=== PATIENT | female | born 1955 | race Caucasian/White ===

== ENCOUNTER 2021-11-21 11:17 | Inpatient (IN) | payer OTHER ==
[2021-11-21] MEDS ORDERED: BISMUTH SUBSALICYLATE 524 MG/30 ML PO PRN (12:51)
[2021-11-21] MEDS ORDERED: MAG HYDROX/AL HYDROX/SIMETH 30 ML UNIT-DOSE CUP PO PRN (12:51)
[2021-11-21] MEDS ORDERED: MENTHOL/PHENOL 1 EACH UD MM PRN (12:51)
[2021-11-21] MEDS ORDERED: MAGNESIUM HYDROX 2400MG/30ML ORAL SUSPENSION 30 ML CUP PO PRN (12:51)
[2021-11-21] MEDS ORDERED: ONDANSETRON *ODT* 4 MG TABLET SL PRN (12:51)
[2021-11-21] MEDS ORDERED: IBUPROFEN 400 MG TABLET (FP) PO PRN (12:51)
[2021-11-21] MEDS ORDERED: ACETAMINOPHEN 325 MG TABLET (FP) PO PRN ×2 (12:51)
[2021-11-21] MEDS ORDERED: MAGNESIUM CITRATE 300 ML BOTTLE PO PRN (12:51)
[2021-11-21] MEDS: PRENATAL VITAMINS W/ FOLIC ACID TABLET (FP) PO SCH (14:43)
[2021-11-21] MEDS: hydrOXYzine PAMOATE 25 MG CAPSULE (FP) PO SCH ×3 (14:44→22:16)
[2021-11-21] MEDS: NICOTINE 14 MG/24 HOURS TOPICAL PATCH TD SCH (14:44)
[2021-11-21] MEDS: LORazepam 1 MG TABLET PO PRN (14:55)
[2021-11-21] MEDS: METHOCARBAMOL 500 MG TABLET PO PRN ×2 (14:56→22:16)
[2021-11-21 17:17] LABS: ALBUMIN 3.6 g/dl (3.4-5.0); BLOOD UREA NITROGEN 8.4 mg/dL (7-18)
[2021-11-21 17:20] LABS: CREATININE 0.8 mg/dL (0.55-1.3)
[2021-11-21 17:21] LABS: BILIRUBIN,TOTAL 0.4 mg/dL (0.2-1)
[2021-11-21 17:24] LABS: HEMATOCRIT 37.1 % (32.4-45.2); HEMOGLOBIN 11.5 GM/dL (10.7-15.3); MCHC 31.1 g/dl (32.0-36.0); MEAN CELL VOLUME 63.2 fl (80-96); MEAN PLT VOLUME 9.4 fl (7.5-11.1); PLATELET COUNT 253 10^3/uL (134-434); RBC 5.87 M/mm3 (3.60-5.2); WHITE BLOOD COUNT 10.5 K/mm3 (4.0-10.0)
[2021-11-21 17:27] LABS: MCH 19.6 pg (25.7-33.7)
[2021-11-21] MEDS: LORazepam 1 MG TABLET PO SCH ×2 (17:52→22:17)
[2021-11-21 18:51] VITALS: BMI 24.6
[2021-11-21] MEDS: MELATONIN 5 MG TABLETS PO SCH (22:16)
[2021-11-21] MEDS: THIAMINE HCL 100 MG TABLET (FP) PO SCH (22:17)
[2021-11-22] MEDS: hydrOXYzine PAMOATE 25 MG CAPSULE (FP) PO SCH ×5 (05:40→22:40)
[2021-11-22] MEDS: LORazepam 1 MG TABLET PO SCH ×4 (05:40→22:40)
[2021-11-22] MEDS ORDERED: methaDONE HCL 40 MG DISPERSABLE TABLET ONE (09:38)
[2021-11-22] MEDS ORDERED: methaDONE HCL 10 MG TABLET ONE (09:38)
[2021-11-22] MEDS ORDERED: DULoxetine HCL 30 MG CAPSULE.DR PO SCH (10:00)
[2021-11-22] MEDS ORDERED: methaDONE 40 MG, methaDONE 10 MG PO ONE (10:00)
[2021-11-22] MEDS ORDERED: methaDONE HCL 10 MG TABLET PO ONE (10:00)
[2021-11-22] MEDS: METHOCARBAMOL 500 MG TABLET PO PRN (10:09)
[2021-11-22] MEDS: PRENATAL VITAMINS W/ FOLIC ACID TABLET (FP) PO SCH (10:09)
[2021-11-22] MEDS ORDERED: DULoxetine HCL 60 MG CAPSULE.DR PO SCH (10:38)
[2021-11-22] MEDS: DULoxetine HCL 60 MG CAPSULE.DR PO SCH (11:52)
[2021-11-22] MEDS: NICOTINE 14 MG/24 HOURS TOPICAL PATCH TD SCH (11:52)
[2021-11-22] MEDS: THIAMINE HCL 100 MG TABLET (FP) PO SCH (22:39)
[2021-11-22] MEDS: MELATONIN 5 MG TABLETS PO SCH (22:42)
[2021-11-23] MEDS ORDERED: methaDONE HCL 10 MG TABLET PO SCH (06:00)
[2021-11-23] MEDS ORDERED: methaDONE HCL 40 MG DISPERSABLE TABLET ONE (06:44)
[2021-11-23] MEDS ORDERED: methaDONE HCL 10 MG TABLET ONE (06:44)
[2021-11-23] MEDS: hydrOXYzine PAMOATE 25 MG CAPSULE (FP) PO SCH ×5 (06:45→22:20)
[2021-11-23] MEDS: LORazepam 1 MG TABLET PO SCH ×4 (06:45→22:20)
[2021-11-23] MEDS: methaDONE 40 MG, methaDONE 10 MG PO SCH (06:45)
[2021-11-23] MEDS: PRENATAL VITAMINS W/ FOLIC ACID TABLET (FP) PO SCH (10:11)
[2021-11-23] MEDS: METHOCARBAMOL 500 MG TABLET PO PRN (10:11)
[2021-11-23] MEDS: DULoxetine HCL 60 MG CAPSULE.DR PO SCH (10:11)
[2021-11-23] MEDS: NICOTINE 14 MG/24 HOURS TOPICAL PATCH TD SCH (10:13)
[2021-11-23] MEDS ORDERED: ALBUTEROL SO4 HFA INHALER IH PRN (12:58)
[2021-11-23] MEDS: LORazepam 1 MG TABLET PO PRN (17:23)
[2021-11-23] MEDS: BUDESONIDE/FORMETEROL FUMARATE 80/4.5 mcg INHALER IH SCH (22:13)
[2021-11-23] MEDS: THIAMINE HCL 100 MG TABLET (FP) PO SCH (22:20)
[2021-11-23] MEDS: MELATONIN 5 MG TABLETS PO SCH (22:20)
[2021-11-23] MEDS: NICOTINE 10 MG CARTRIDGE (INHALER) IH PRN (23:02)
[2021-11-24] MEDS ORDERED: methaDONE HCL 10 MG TABLET ONE (03:58)
[2021-11-24] MEDS ORDERED: methaDONE HCL 40 MG DISPERSABLE TABLET ONE (03:58)
[2021-11-24] MEDS: hydrOXYzine PAMOATE 25 MG CAPSULE (FP) PO SCH ×5 (05:36→22:41)
[2021-11-24] MEDS: methaDONE 40 MG, methaDONE 10 MG PO SCH (05:36)
[2021-11-24] MEDS: LORazepam 0.5 MG TABLET PO SCH ×4 (05:37→22:41)
[2021-11-24] MEDS: NICOTINE 10 MG CARTRIDGE (INHALER) IH PRN ×4 (05:40→18:14)
[2021-11-24] MEDS: LORazepam 0.5 MG TABLET PO PRN ×2 (08:28→15:26)
[2021-11-24] MEDS: PRENATAL VITAMINS W/ FOLIC ACID TABLET (FP) PO SCH (10:40)
[2021-11-24] MEDS: DULoxetine HCL 60 MG CAPSULE.DR PO SCH (10:40)
[2021-11-24] MEDS: NICOTINE 14 MG/24 HOURS TOPICAL PATCH TD SCH (10:41)
[2021-11-24] MEDS: TIOTROPIUM BROMIDE 2.5 MCG (SPIRIVA) RESPIMAT INHALER IH SCH (10:46)
[2021-11-24] MEDS: BUDESONIDE/FORMETEROL FUMARATE 80/4.5 mcg INHALER IH SCH ×2 (10:47→22:41)
[2021-11-24 13:52] LABS: HEMATOCRIT 37.3 % (32.4-45.2); HEMOGLOBIN 11.7 GM/dL (10.7-15.3); MCHC 31.4 g/dl (32.0-36.0); MEAN PLT VOLUME 8.9 fl (7.5-11.1); PLATELET COUNT 174 10^3/uL (134-434); RBC 5.92 M/mm3 (3.60-5.2); RDW 19.8 % (11.6-15.6); WHITE BLOOD COUNT 7.5 K/mm3 (4.0-10.0)
[2021-11-24 13:58] LABS: MCH 19.8 pg (25.7-33.7)
[2021-11-24] MEDS ORDERED: LIDOCAINE 5% TOPICAL PATCH TP ONE (18:20)
[2021-11-24] MEDS: MELATONIN 5 MG TABLETS PO SCH (22:41)
[2021-11-24] MEDS: THIAMINE HCL 100 MG TABLET (FP) PO SCH (22:41)
[2021-11-25] MEDS ORDERED: methaDONE HCL 40 MG DISPERSABLE TABLET ONE (04:03)
[2021-11-25] MEDS ORDERED: methaDONE HCL 10 MG TABLET ONE (04:03)
[2021-11-25] MEDS ORDERED: LORazepam 0.5 MG TABLET PO ONE (05:00)
[2021-11-25] MEDS: methaDONE 40 MG, methaDONE 10 MG PO SCH (06:02)
[2021-11-25] MEDS: hydrOXYzine PAMOATE 25 MG CAPSULE (FP) PO SCH ×2 (06:02→10:06)
[2021-11-25] MEDS: NICOTINE 10 MG CARTRIDGE (INHALER) IH PRN ×2 (06:08→10:06)
[2021-11-25 07:30] VITALS: BP 109/71; PULSE 98; TEMP 98
[2021-11-25] MEDS ORDERED: LIDOCAINE PATCH REMOVAL MC SCH (10:00)
[2021-11-25] MEDS: TIOTROPIUM BROMIDE 2.5 MCG (SPIRIVA) RESPIMAT INHALER IH SCH (10:05)
[2021-11-25] MEDS: BUDESONIDE/FORMETEROL FUMARATE 80/4.5 mcg INHALER IH SCH (10:05)
[2021-11-25] MEDS: DULoxetine HCL 60 MG CAPSULE.DR PO SCH (10:06)
[2021-11-25] MEDS: PRENATAL VITAMINS W/ FOLIC ACID TABLET (FP) PO SCH (10:06)
[2021-11-25] MEDS: NICOTINE 14 MG/24 HOURS TOPICAL PATCH TD SCH (10:06)
== END 2021-11-25 10:31 | disposition home or self-care (01) | DRG 897 ==
LOC: YASAS 11:17 → Y6N 13:59
PROVIDERS: ADMIT Allergy & Immunology; ATTEND Allergy & Immunology
PROC: HZ2ZZZZ Detoxification Services for Substance Abuse Treatment (ICD-10-PCS; principal; 2021-11-21)
DX: F10.230 Alcohol dependence with withdrawal, uncomplicated (principal); F11.20 Opioid dependence, uncomplicated; F14.20 Cocaine dependence, uncomplicated; F17.213 Nicotine dependence, cigarettes, with withdrawal; F41.8 Other specified anxiety disorders; F32.A Depression, unspecified; R76.11 Nonspecific reaction to tuberculin skin test without active tuberculosis; Z96.651 Presence of right artificial knee joint
CPT/HCPCS: 36415; 80053; 82947; 82962; 83036; 85027; 86780; C9803; U0003; U0005

== ENCOUNTER 2021-12-05 12:21 | Inpatient (IN) | payer OTHER ==
[2021-12-05] MEDS ORDERED: MENTHOL/PHENOL 1 EACH UD MM PRN (12:38)
[2021-12-05] MEDS ORDERED: IBUPROFEN 400 MG TABLET (FP) PO PRN (12:38)
[2021-12-05] MEDS ORDERED: MAGNESIUM HYDROX 2400MG/30ML ORAL SUSPENSION 30 ML CUP PO PRN (12:38)
[2021-12-05] MEDS ORDERED: ACETAMINOPHEN 325 MG TABLET (FP) PO PRN ×2 (12:38)
[2021-12-05] MEDS ORDERED: ONDANSETRON *ODT* 4 MG TABLET SL PRN (12:38)
[2021-12-05] MEDS ORDERED: MAG HYDROX/AL HYDROX/SIMETH 30 ML UNIT-DOSE CUP PO PRN (12:38)
[2021-12-05] MEDS ORDERED: BISMUTH SUBSALICYLATE 262 MG/15 ML BTL PO PRN (12:38)
[2021-12-05] MEDS ORDERED: LORazepam 1 MG TABLET PO PRN (12:38)
[2021-12-05] MEDS ORDERED: MAGNESIUM CITRATE 300 ML BOTTLE PO PRN (12:38)
[2021-12-05] MEDS ORDERED: ALBUTEROL SO4 HFA INHALER IH PRN (12:42)
[2021-12-05 13:01] VITALS: BMI 25.7
[2021-12-05] MEDS: NICOTINE 21 MG/24 HOURS TOPICAL PATCH TD SCH (15:39)
[2021-12-05] MEDS: metFORMIN HCL 500 MG TABLET (FP) PO SCH (17:20)
[2021-12-05] MEDS: LORazepam 1 MG TABLET PO SCH ×2 (17:20→22:22)
[2021-12-05 17:46] LABS: ALBUMIN 3.4 g/dl (3.4-5.0); CALCIUM 8.8 mg/dL (8.5-10.1)
[2021-12-05 17:47] LABS: BLOOD UREA NITROGEN 8.8 mg/dL (7-18)
[2021-12-05 17:50] LABS: CREATININE 0.9 mg/dL (0.55-1.3); HEMOGLOBIN 11.1 GM/dL (10.7-15.3); MCH 20.7 pg (25.7-33.7); MCHC 31.7 g/dl (32.0-36.0); MEAN CELL VOLUME 65.1 fl (80-96); MEAN PLT VOLUME 8.5 fl (7.5-11.1); PLATELET COUNT 175 10^3/uL (134-434); RBC 5.37 M/mm3 (3.60-5.2); RDW 21.5 % (11.6-15.6); WHITE BLOOD COUNT 7.8 K/mm3 (4.0-10.0)
[2021-12-05 17:51] LABS: BILIRUBIN,TOTAL 0.5 mg/dL (0.2-1); TOT PROT 6.6 g/dl (6.4-8.2)
[2021-12-05] MEDS: NICOTINE 10 MG CARTRIDGE (INHALER) IH PRN ×2 (17:54→22:26)
[2021-12-05] MEDS: BUDESONIDE/FORMETEROL FUMARATE 80/4.5 mcg INHALER IH SCH (22:21)
[2021-12-05] MEDS: THIAMINE HCL 100 MG TABLET (FP) PO SCH (22:22)
[2021-12-05] MEDS: busPIRone HCL 5 MG TABLET PO SCH (22:22)
[2021-12-05] MEDS: METHOCARBAMOL 500 MG TABLET PO PRN (22:22)
[2021-12-05] MEDS: hydrOXYzine PAMOATE 25 MG CAPSULE (FP) PO PRN (22:23)
[2021-12-05] MEDS: MELATONIN 5 MG TABLETS PO SCH (22:25)
[2021-12-06] MEDS: busPIRone HCL 5 MG TABLET PO SCH ×3 (06:09→22:59)
[2021-12-06] MEDS: LORazepam 1 MG TABLET PO SCH ×4 (06:09→22:16)
[2021-12-06] MEDS: metFORMIN HCL 500 MG TABLET (FP) PO SCH ×2 (06:09→18:52)
[2021-12-06] MEDS ORDERED: methaDONE HCL 10 MG TABLET PO SCH (07:45)
[2021-12-06] MEDS ORDERED: methaDONE HCL 10 MG TABLET ONE ×2 (08:49→08:54)
[2021-12-06] MEDS ORDERED: methaDONE HCL 40 MG DISPERSABLE TABLET ONE ×2 (08:49→08:54)
[2021-12-06] MEDS: NICOTINE 21 MG/24 HOURS TOPICAL PATCH TD SCH (10:33)
[2021-12-06] MEDS: methaDONE 40 MG, methaDONE 10 MG PO SCH (10:34)
[2021-12-06] MEDS: DULoxetine HCL 30 MG CAPSULE.DR PO SCH (10:35)
[2021-12-06] MEDS: PRENATAL VITAMINS W/ FOLIC ACID TABLET (FP) PO SCH (10:35)
[2021-12-06] MEDS: BUDESONIDE/FORMETEROL FUMARATE 80/4.5 mcg INHALER IH SCH ×2 (10:39→22:17)
[2021-12-06] MEDS: TIOTROPIUM BROMIDE 2.5 MCG (SPIRIVA) RESPIMAT INHALER IH SCH (10:40)
[2021-12-06] MEDS: METHOCARBAMOL 500 MG TABLET PO PRN (22:16)
[2021-12-06] MEDS: MELATONIN 5 MG TABLETS PO SCH (22:17)
[2021-12-06] MEDS: THIAMINE HCL 100 MG TABLET (FP) PO SCH (22:17)
[2021-12-06] MEDS: hydrOXYzine PAMOATE 25 MG CAPSULE (FP) PO PRN (22:19)
[2021-12-06] MEDS: NICOTINE 10 MG CARTRIDGE (INHALER) IH PRN (22:20)
[2021-12-07] MEDS ORDERED: methaDONE HCL 10 MG TABLET ONE (04:32)
[2021-12-07] MEDS ORDERED: methaDONE HCL 40 MG DISPERSABLE TABLET ONE (04:33)
[2021-12-07] MEDS: LORazepam 1 MG TABLET PO SCH ×4 (06:11→22:47)
[2021-12-07] MEDS: busPIRone HCL 5 MG TABLET PO SCH ×3 (06:11→22:47)
[2021-12-07] MEDS: methaDONE 40 MG, methaDONE 10 MG PO SCH (06:11)
[2021-12-07] MEDS: metFORMIN HCL 500 MG TABLET (FP) PO SCH ×2 (07:06→17:39)
[2021-12-07] MEDS: PRENATAL VITAMINS W/ FOLIC ACID TABLET (FP) PO SCH (10:17)
[2021-12-07] MEDS: BUDESONIDE/FORMETEROL FUMARATE 80/4.5 mcg INHALER IH SCH ×2 (10:18→22:44)
[2021-12-07] MEDS: TIOTROPIUM BROMIDE 2.5 MCG (SPIRIVA) RESPIMAT INHALER IH SCH (10:18)
[2021-12-07] MEDS: NICOTINE 21 MG/24 HOURS TOPICAL PATCH TD SCH (10:18)
[2021-12-07] MEDS: NICOTINE 10 MG CARTRIDGE (INHALER) IH PRN ×2 (10:23→13:32)
[2021-12-07] MEDS: DULoxetine HCL 30 MG CAPSULE.DR PO SCH (11:36)
[2021-12-07] MEDS: MELATONIN 5 MG TABLETS PO SCH (22:45)
[2021-12-07] MEDS: THIAMINE HCL 100 MG TABLET (FP) PO SCH (22:47)
[2021-12-07] MEDS: hydrOXYzine PAMOATE 25 MG CAPSULE (FP) PO PRN (22:48)
[2021-12-07] MEDS: METHOCARBAMOL 500 MG TABLET PO PRN (22:48)
[2021-12-08] MEDS ORDERED: LORazepam 0.5 MG TABLET PO PRN
[2021-12-08] MEDS ORDERED: methaDONE HCL 40 MG DISPERSABLE TABLET ONE (04:10)
[2021-12-08] MEDS ORDERED: methaDONE HCL 10 MG TABLET ONE (04:10)
[2021-12-08] MEDS: LORazepam 0.5 MG TABLET PO SCH ×4 (06:13→22:33)
[2021-12-08] MEDS: metFORMIN HCL 500 MG TABLET (FP) PO SCH ×2 (06:13→17:21)
[2021-12-08] MEDS: methaDONE 40 MG, methaDONE 10 MG PO SCH (06:13)
[2021-12-08] MEDS: busPIRone HCL 5 MG TABLET PO SCH ×3 (06:13→22:32)
[2021-12-08] MEDS: NICOTINE 10 MG CARTRIDGE (INHALER) IH PRN ×5 (06:17→22:34)
[2021-12-08] MEDS: PRENATAL VITAMINS W/ FOLIC ACID TABLET (FP) PO SCH (10:25)
[2021-12-08] MEDS: DULoxetine HCL 30 MG CAPSULE.DR PO SCH (10:26)
[2021-12-08] MEDS: TIOTROPIUM BROMIDE 2.5 MCG (SPIRIVA) RESPIMAT INHALER IH SCH (10:26)
[2021-12-08] MEDS: BUDESONIDE/FORMETEROL FUMARATE 80/4.5 mcg INHALER IH SCH ×2 (10:27→22:32)
[2021-12-08] MEDS: NICOTINE 21 MG/24 HOURS TOPICAL PATCH TD SCH (10:30)
[2021-12-08] MEDS: MELATONIN 5 MG TABLETS PO SCH (22:31)
[2021-12-08] MEDS: THIAMINE HCL 100 MG TABLET (FP) PO SCH (22:32)
[2021-12-09] MEDS ORDERED: methaDONE HCL 10 MG TABLET ONE (04:05)
[2021-12-09] MEDS ORDERED: methaDONE HCL 40 MG DISPERSABLE TABLET ONE (04:05)
[2021-12-09] MEDS ORDERED: LORazepam 0.5 MG TABLET PO ONE (05:00)
[2021-12-09] MEDS: methaDONE 40 MG, methaDONE 10 MG PO SCH (05:20)
[2021-12-09] MEDS: busPIRone HCL 5 MG TABLET PO SCH (05:20)
[2021-12-09] MEDS: NICOTINE 10 MG CARTRIDGE (INHALER) IH PRN (05:23)
[2021-12-09] MEDS: metFORMIN HCL 500 MG TABLET (FP) PO SCH (06:49)
[2021-12-09 08:57] VITALS: BP 99/68; PULSE 76; TEMP 977.3
== END 2021-12-09 09:30 | disposition home or self-care (01) | DRG 897 ==
LOC: YASAS 12:21 → Y3N 14:40
PROVIDERS: ADMIT Allergy & Immunology; ATTEND Allergy & Immunology
PROC: HZ2ZZZZ Detoxification Services for Substance Abuse Treatment (ICD-10-PCS; principal; 2021-12-05)
DX: F10.230 Alcohol dependence with withdrawal, uncomplicated (principal); F11.20 Opioid dependence, uncomplicated; F14.20 Cocaine dependence, uncomplicated; F17.210 Nicotine dependence, cigarettes, uncomplicated; F19.24 Other psychoactive substance dependence with psychoactive substance-induced mood disorder; F32.A Depression, unspecified; F41.8 Other specified anxiety disorders; J44.9 Chronic obstructive pulmonary disease, unspecified; E11.9 Type 2 diabetes mellitus without complications; Z79.84 Long term (current) use of oral hypoglycemic drugs; G47.00 Insomnia, unspecified; Z96.651 Presence of right artificial knee joint; Z99.89 Dependence on other enabling machines and devices
CPT/HCPCS: 36415; 71046-TC-FY; 80053; 82962; 85027; 86780; C9803; Q0162; U0003; U0005

== ENCOUNTER 2022-01-05 09:26 | Inpatient (IN) | payer OTHER ==
[2022-01-05 09:52] VITALS: BMI 25.1
[2022-01-05] MEDS ORDERED: METHOCARBAMOL 500 MG TABLET PO PRN (10:51)
[2022-01-05] MEDS ORDERED: MAGNESIUM CITRATE 300 ML BOTTLE PO PRN (10:51)
[2022-01-05] MEDS ORDERED: IBUPROFEN 400 MG TABLET (FP) PO PRN (10:51)
[2022-01-05] MEDS ORDERED: MAG HYDROX/AL HYDROX/SIMETH 30 ML UNIT-DOSE CUP PO PRN (10:51)
[2022-01-05] MEDS ORDERED: ACETAMINOPHEN 325 MG TABLET (FP) PO PRN ×2 (10:51)
[2022-01-05] MEDS ORDERED: MAGNESIUM HYDROX 2400MG/30ML ORAL SUSPENSION 30 ML CUP PO PRN (10:51)
[2022-01-05] MEDS ORDERED: MENTHOL/PHENOL 1 EACH UD MM PRN (10:51)
[2022-01-05] MEDS ORDERED: LOPERAMIDE HCL 2 MG CAPSULE PO PRN (10:51)
[2022-01-05] MEDS ORDERED: ONDANSETRON *ODT* 4 MG TABLET SL PRN (10:51)
[2022-01-05] MEDS ORDERED: BISMUTH SUBSALICYLATE 524 MG/30 ML PO PRN (10:51)
[2022-01-05] MEDS ORDERED: methaDONE HCL 10 MG TABLET (FOR DETOX USE ONLY) PO ONE (10:56)
[2022-01-05] MEDS: LORazepam 1 MG TABLET PO PRN ×2 (11:00→18:17)
[2022-01-05] MEDS ORDERED: LORazepam 1 MG TABLET ONE (11:17)
[2022-01-05] MEDS ORDERED: methaDONE HCL 10 MG TABLET (FOR DETOX USE ONLY) ONE (11:18)
[2022-01-05] MEDS: LORazepam 2 MG TABLET PO SCH ×3 (11:22→23:06)
[2022-01-05] MEDS: NICOTINE 10 MG CARTRIDGE (INHALER) IH PRN ×2 (13:21→18:20)
[2022-01-05] MEDS: hydrOXYzine PAMOATE 25 MG CAPSULE (FP) PO SCH ×4 (14:57→23:06)
[2022-01-05] MEDS ORDERED: ALBUTEROL SO4 HFA INHALER IH PRN (17:29)
[2022-01-05] MEDS ORDERED: BUDESONIDE/FORMETEROL FUMARATE 160/4.5 mcg INHALER IH ONE (17:30)
[2022-01-05] MEDS ORDERED: THIAMINE HCL 100 MG TABLET (FP) PO SCH (22:00)
[2022-01-05] MEDS ORDERED: MELATONIN 5 MG TABLETS PO SCH (22:00)
[2022-01-06] MEDS: hydrOXYzine PAMOATE 25 MG CAPSULE (FP) PO SCH ×2 (06:40→10:04)
[2022-01-06] MEDS: LORazepam 0.5 MG TABLET PO SCH ×2 (06:40→10:05)
[2022-01-06 08:49] VITALS: BP 116/75; PULSE 80; TEMP 96.7
[2022-01-06] MEDS ORDERED: PRENATAL VITAMINS W/ FOLIC ACID TABLET (FP) PO SCH (10:00)
[2022-01-06] MEDS: NICOTINE 10 MG CARTRIDGE (INHALER) IH PRN (10:08)
[2022-01-06 10:38] LABS: CALCIUM 8.4 mg/dL (8.5-10.1)
[2022-01-06 10:39] LABS: ALBUMIN 2.9 g/dl (3.4-5.0); BLOOD UREA NITROGEN 11.2 mg/dL (7-18)
[2022-01-06 10:42] LABS: CREATININE 0.7 mg/dL (0.55-1.3)
[2022-01-06 10:44] LABS: BILIRUBIN,TOTAL 0.3 mg/dL (0.2-1)
[2022-01-06 10:45] LABS: HEMATOCRIT 35.9 % (32.4-45.2); HEMOGLOBIN 11.4 GM/dL (10.7-15.3); MCHC 31.6 g/dl (32.0-36.0); MEAN CELL VOLUME 66.4 fl (80-96); MEAN PLT VOLUME 8.8 fl (7.5-11.1); PLATELET COUNT 160 10^3/uL (134-434); RBC 5.41 M/mm3 (3.60-5.2); RDW 22.2 % (11.6-15.6); WHITE BLOOD COUNT 6.1 K/mm3 (4.0-10.0)
[2022-01-07] MEDS ORDERED: LORazepam 1 MG TABLET PO SCH (05:00)
[2022-01-08] MEDS ORDERED: LORazepam 0.5 MG TABLET PO PRN
[2022-01-08 00:08] LABS: SARS-CoV-2 NAA Not Detected (Not Detected)
[2022-01-08] MEDS ORDERED: LORazepam 0.5 MG TABLET PO SCH (05:00)
[2022-01-09] MEDS ORDERED: LORazepam 0.5 MG TABLET PO ONE (05:00)
== END 2022-01-06 12:39 | disposition home or self-care (01) | DRG 897 ==
LOC: YASAS 09:26 → Y3N 12:27
PROVIDERS: ADMIT Allergy & Immunology; ATTEND Allergy & Immunology
PROC: HZ2ZZZZ Detoxification Services for Substance Abuse Treatment (ICD-10-PCS; principal; 2022-01-05)
DX: F10.230 Alcohol dependence with withdrawal, uncomplicated (principal); F11.20 Opioid dependence, uncomplicated; F14.20 Cocaine dependence, uncomplicated; F17.210 Nicotine dependence, cigarettes, uncomplicated; E11.9 Type 2 diabetes mellitus without complications; Z79.84 Long term (current) use of oral hypoglycemic drugs; Z96.651 Presence of right artificial knee joint
CPT/HCPCS: 36415; 80053; 82962; 85027; 86780; 87811; C9803; U0003; U0005

== ENCOUNTER 2022-01-10 11:38 | Inpatient (IN) | payer OTHER ==
[2022-01-10] MEDS ORDERED: P-EPHED 60MG/TRIPROLIDI 2.5MG TABLET PO PRN (13:10)
[2022-01-10] MEDS ORDERED: guaiFENesin 200 MG/10 ML 10 ML UNIT-DOSE CUPS PO PRN (13:10)
[2022-01-10] MEDS ORDERED: MAGNESIUM HYDROX 2400MG/30ML ORAL SUSPENSION 30 ML CUP PO PRN (13:10)
[2022-01-10] MEDS ORDERED: ACETAMINOPHEN 325 MG TABLET (FP) PO PRN (13:10)
[2022-01-10] MEDS ORDERED: MAG HYDROX/AL HYDROX/SIMETH 30 ML UNIT-DOSE CUP PO PRN (13:10)
[2022-01-10] MEDS ORDERED: IBUPROFEN 400 MG TABLET (FP) PO PRN (13:10)
[2022-01-10] MEDS ORDERED: MAGNESIUM CITRATE 300 ML BOTTLE PO PRN (13:10)
[2022-01-10] MEDS ORDERED: LOPERAMIDE HCL 2 MG CAPSULE PO PRN (13:10)
[2022-01-10 13:22] VITALS: BMI 25.1
[2022-01-10 17:15] LABS: CALCIUM 8.8 mg/dL (8.5-10.1)
[2022-01-10 17:16] LABS: ALBUMIN 3.4 g/dl (3.4-5.0); BLOOD UREA NITROGEN 15.5 mg/dL (7-18)
[2022-01-10 17:20] LABS: BILIRUBIN,TOTAL 0.3 mg/dL (0.2-1); TOT PROT 6.7 g/dl (6.4-8.2)
[2022-01-10 17:24] LABS: HEMATOCRIT 32.6 % (32.4-45.2); HEMOGLOBIN 10.8 GM/dL (10.7-15.3); MCH 21.9 pg (25.7-33.7); MCHC 33.1 g/dl (32.0-36.0); MEAN CELL VOLUME 66.2 fl (80-96); MEAN PLT VOLUME 8.7 fl (7.5-11.1); PLATELET COUNT 165 10^3/uL (134-434); RBC 4.92 M/mm3 (3.60-5.2); RDW 22.6 % (11.6-15.6); WHITE BLOOD COUNT 6.1 K/mm3 (4.0-10.0)
[2022-01-10 17:38] LABS: SYPHILIS W/ RPR CONF NON-REACTIVE (NONREACTIVE)
[2022-01-10] MEDS: PRENATAL VITAMINS W/ FOLIC ACID TABLET (FP) PO SCH (18:54)
[2022-01-10] MEDS: NICOTINE 7 MG/24 HOURS TOPICAL PATCH TD SCH (18:54)
[2022-01-10] MEDS: NICOTINE 10 MG CARTRIDGE (INHALER) IH PRN (18:57)
[2022-01-10] MEDS: hydrOXYzine PAMOATE 25 MG CAPSULE (FP) PO PRN (21:14)
[2022-01-10] MEDS: MELATONIN 5 MG TABLETS PO SCH (21:14)
[2022-01-10] MEDS: THIAMINE HCL 100 MG TABLET (FP) PO SCH (21:14)
[2022-01-11] MEDS ORDERED: methaDONE HCL 40 MG DISPERSABLE TABLET PO SCH (07:30)
[2022-01-11] MEDS ORDERED: methaDONE HCL 40 MG DISPERSABLE TABLET ONE (07:43)
[2022-01-11] MEDS ORDERED: methaDONE HCL 10 MG TABLET ONE (07:43)
[2022-01-11] MEDS: NICOTINE 7 MG/24 HOURS TOPICAL PATCH TD SCH (09:55)
[2022-01-11] MEDS: PRENATAL VITAMINS W/ FOLIC ACID TABLET (FP) PO SCH (09:55)
[2022-01-11] MEDS: hydrOXYzine PAMOATE 25 MG CAPSULE (FP) PO PRN (09:57)
[2022-01-11] MEDS: BACLOFEN 10 MG TABLET (FP) PO PRN ×2 (10:38→21:13)
[2022-01-11] MEDS: NICOTINE 10 MG CARTRIDGE (INHALER) IH PRN ×2 (12:30→21:11)
[2022-01-11] MEDS ORDERED: ALBUTEROL SO4 HFA INHALER IH PRN (14:17)
[2022-01-11] MEDS: METHYL SALICYLATE/MENTHOL OINT 30 GM TUBE TP SCH ×2 (15:58→21:11)
[2022-01-11] MEDS: metFORMIN HCL 500 MG TABLET (FP) PO SCH (17:11)
[2022-01-11] MEDS: MELATONIN 5 MG TABLETS PO SCH (21:11)
[2022-01-11] MEDS: BUDESONIDE/FORMETEROL FUMARATE 80/4.5 mcg INHALER IH SCH (21:14)
[2022-01-11] MEDS: THIAMINE HCL 100 MG TABLET (FP) PO SCH (21:15)
[2022-01-12] MEDS ORDERED: methaDONE HCL 10 MG TABLET ONE (04:00)
[2022-01-12] MEDS ORDERED: methaDONE HCL 40 MG DISPERSABLE TABLET ONE (04:00)
[2022-01-12] MEDS: metFORMIN HCL 500 MG TABLET (FP) PO SCH ×2 (06:37→17:03)
[2022-01-12] MEDS: NICOTINE 7 MG/24 HOURS TOPICAL PATCH TD SCH (10:08)
[2022-01-12] MEDS: PRENATAL VITAMINS W/ FOLIC ACID TABLET (FP) PO SCH (10:08)
[2022-01-12] MEDS: METHYL SALICYLATE/MENTHOL OINT 30 GM TUBE TP SCH ×2 (10:08→21:35)
[2022-01-12] MEDS: BUDESONIDE/FORMETEROL FUMARATE 80/4.5 mcg INHALER IH SCH ×2 (10:09→21:35)
[2022-01-12] MEDS: TIOTROPIUM BROMIDE 2.5 MCG (SPIRIVA) RESPIMAT INHALER IH SCH (10:09)
[2022-01-12] MEDS: NICOTINE 10 MG CARTRIDGE (INHALER) IH PRN ×2 (10:11→17:03)
[2022-01-12] MEDS: MELATONIN 5 MG TABLETS PO SCH (21:35)
[2022-01-12] MEDS: THIAMINE HCL 100 MG TABLET (FP) PO SCH (21:35)
[2022-01-13] MEDS ORDERED: methaDONE HCL 10 MG TABLET ONE (04:47)
[2022-01-13] MEDS ORDERED: methaDONE HCL 40 MG DISPERSABLE TABLET ONE (04:47)
[2022-01-13] MEDS: metFORMIN HCL 500 MG TABLET (FP) PO SCH ×2 (06:52→17:00)
[2022-01-13] MEDS: NICOTINE 10 MG CARTRIDGE (INHALER) IH PRN ×3 (06:53→17:02)
[2022-01-13] MEDS: NICOTINE 7 MG/24 HOURS TOPICAL PATCH TD SCH (09:53)
[2022-01-13] MEDS: PRENATAL VITAMINS W/ FOLIC ACID TABLET (FP) PO SCH (09:53)
[2022-01-13] MEDS: BUDESONIDE/FORMETEROL FUMARATE 80/4.5 mcg INHALER IH SCH ×2 (09:55→21:03)
[2022-01-13] MEDS: METHYL SALICYLATE/MENTHOL OINT 30 GM TUBE TP SCH ×2 (09:56→21:03)
[2022-01-13] MEDS: TIOTROPIUM BROMIDE 2.5 MCG (SPIRIVA) RESPIMAT INHALER IH SCH (09:57)
[2022-01-13] MEDS: hydrOXYzine PAMOATE 25 MG CAPSULE (FP) PO PRN ×2 (12:25→21:04)
[2022-01-13] MEDS: MELATONIN 5 MG TABLETS PO SCH (21:03)
[2022-01-13] MEDS: THIAMINE HCL 100 MG TABLET (FP) PO SCH (21:03)
[2022-01-14] MEDS ORDERED: methaDONE HCL 10 MG TABLET ONE (02:48)
[2022-01-14] MEDS ORDERED: methaDONE HCL 40 MG DISPERSABLE TABLET ONE (02:49)
[2022-01-14] MEDS: metFORMIN HCL 500 MG TABLET (FP) PO SCH ×2 (06:53→18:13)
[2022-01-14] MEDS: NICOTINE 7 MG/24 HOURS TOPICAL PATCH TD SCH (09:53)
[2022-01-14] MEDS: BUDESONIDE/FORMETEROL FUMARATE 80/4.5 mcg INHALER IH SCH (09:53)
[2022-01-14] MEDS: PRENATAL VITAMINS W/ FOLIC ACID TABLET (FP) PO SCH (09:53)
[2022-01-14] MEDS: METHYL SALICYLATE/MENTHOL OINT 30 GM TUBE TP SCH (09:53)
[2022-01-14] MEDS: TIOTROPIUM BROMIDE 2.5 MCG (SPIRIVA) RESPIMAT INHALER IH SCH (09:54)
[2022-01-14] MEDS: NICOTINE 10 MG CARTRIDGE (INHALER) IH PRN (09:57)
[2022-01-14] MEDS: BACLOFEN 10 MG TABLET (FP) PO PRN (12:48)
[2022-01-14 14:08] LABS: SARS-CoV-2 NAA Not Detected (Not Detected)
[2022-01-14 16:33] VITALS: BP 91/61; PULSE 104; TEMP 96.8
[2022-01-15] MEDS: METHYL SALICYLATE/MENTHOL OINT 30 GM TUBE TP SCH (00:15)
[2022-01-15] MEDS: MELATONIN 5 MG TABLETS PO SCH (00:15)
[2022-01-15] MEDS: BUDESONIDE/FORMETEROL FUMARATE 80/4.5 mcg INHALER IH SCH (00:16)
[2022-01-15] MEDS: THIAMINE HCL 100 MG TABLET (FP) PO SCH (00:17)
== END 2022-01-14 16:50 | disposition short-term general hospital (02) | DRG 895 ==
LOC: YASAS 11:38 → Y5N 16:56
PROVIDERS: ADMIT Allergy & Immunology; ATTEND Allergy & Immunology
PROC: HZ42ZZZ Group Counseling for Substance Abuse Treatment, Cognitive-Behavioral (ICD-10-PCS; principal; 2022-01-10)
DX: F11.20 Opioid dependence, uncomplicated (principal); F10.20 Alcohol dependence, uncomplicated; F17.210 Nicotine dependence, cigarettes, uncomplicated; R10.32 Left lower quadrant pain; M19.90 Unspecified osteoarthritis, unspecified site; Z96.651 Presence of right artificial knee joint; Z86.718 Personal history of other venous thrombosis and embolism
CPT/HCPCS: 36415; 80053; 82962; 85027; 86780; 86803; C9803; J0475; U0003; U0005

== ENCOUNTER 2022-07-18 10:44 | Inpatient (IN) | payer OTHER ==
[2022-07-18 11:31] VITALS: BMI 21.7
[2022-07-18] MEDS ORDERED: DICYCLOMINE HCL 10 MG CAPSULE PO PRN (12:12)
[2022-07-18] MEDS ORDERED: ONDANSETRON *ODT* 4 MG TABLET SL PRN (12:12)
[2022-07-18] MEDS ORDERED: LOPERAMIDE HCL 2 MG CAPSULE PO PRN (12:12)
[2022-07-18] MEDS ORDERED: NICOTINE POLACRILEX 4 MG GUM BUC PRN (12:12)
[2022-07-18] MEDS ORDERED: IBUPROFEN 600 MG TABLET (FP) PO PRN (12:12)
[2022-07-18] MEDS ORDERED: MAGNESIUM CITRATE 300 ML BOTTLE PO PRN (12:12)
[2022-07-18] MEDS ORDERED: IBUPROFEN 400 MG TABLET (FP) PO PRN (12:12)
[2022-07-18] MEDS ORDERED: LORazepam 1 MG TABLET PO PRN (12:12)
[2022-07-18] MEDS ORDERED: MAGNESIUM HYDROX 2400MG/30ML ORAL SUSPENSION 30 ML CUP PO PRN (12:12)
[2022-07-18] MEDS ORDERED: MAG HYDROX/AL HYDROX/SIMETH 30 ML UNIT-DOSE CUP PO PRN (12:12)
[2022-07-18] MEDS ORDERED: BISMUTH SUBSALICYLATE 524 MG/30 ML PO PRN (12:12)
[2022-07-18] MEDS ORDERED: NALOXONE HCL (KLOXXADO) 8 MG SPRAY NS PRN (12:12)
[2022-07-18] MEDS ORDERED: ACETAMINOPHEN 325 MG TABLET (FP) PO PRN ×2 (12:12)
[2022-07-18] MEDS ORDERED: BENZOCAINE/MENTHOL (CHLORASEPTIC ) LOZENGE MM PRN (12:12)
[2022-07-18] MEDS ORDERED: ALBUTEROL SO4 HFA INHALER IH PRN (12:17)
[2022-07-18] MEDS ORDERED: hydrOXYzine PAMOATE 25 MG CAPSULE (FP) PO PRN (14:00)
[2022-07-18] MEDS: METHOCARBAMOL 500 MG TABLET PO PRN (14:23)
[2022-07-18] MEDS: TIOTROPIUM BROMIDE 2.5 MCG (SPIRIVA) RESPIMAT INHALER IH SCH (14:24)
[2022-07-18 14:44] LABS: BLOOD UREA NITROGEN 7.6 mg/dL (7-18); CALCIUM 8.4 mg/dL (8.5-10.1)
[2022-07-18 14:48] LABS: CREATININE 0.7 mg/dL (0.55-1.3)
[2022-07-18 14:49] LABS: BILIRUBIN,TOTAL 0.2 mg/dL (0.2-1); TOT PROT 6.9 g/dl (6.4-8.2)
[2022-07-18 15:37] LABS: HEMATOCRIT 33.8 % (32.4-45.2); HEMOGLOBIN 10.4 GM/dL (10.7-15.3); MCHC 30.9 g/dl (32.0-36.0); MEAN CELL VOLUME 58.5 fl (80-96); MEAN PLT VOLUME 8.3 fl (7.5-11.1); PLATELET COUNT 260 10^3/uL (134-434); RBC 5.77 M/mm3 (3.60-5.2); RDW 20.1 % (11.6-15.6); WHITE BLOOD COUNT 13.2 K/mm3 (4.0-10.0)
[2022-07-18 15:48] LABS: MCH 18.1 pg (25.7-33.7)
[2022-07-18] MEDS ORDERED: INSULIN (NOVOLOG) ASPART 100 UNITS/ML 10ML VIAL ONE (16:53)
[2022-07-18] MEDS: metFORMIN HCL 500 MG TABLET (FP) PO SCH (18:22)
[2022-07-18] MEDS: LORazepam 1 MG TABLET PO SCH ×2 (18:23→22:23)
[2022-07-18] MEDS: INSULIN SLIDING SCALE (NOVOLOG) 1 VIAL SQ SCH (18:24)
[2022-07-18] MEDS: THIAMINE HCL 100 MG TABLET (FP) PO SCH (22:23)
[2022-07-18] MEDS: MELATONIN 5 MG TABLETS PO SCH (22:23)
[2022-07-18] MEDS: BUDESONIDE/FORMETEROL FUMARATE 80/4.5 mcg INHALER IH SCH (22:46)
[2022-07-19] MEDS: LORazepam 1 MG TABLET PO SCH ×4 (06:11→23:17)
[2022-07-19] MEDS: metFORMIN HCL 500 MG TABLET (FP) PO SCH ×2 (06:37→20:02)
[2022-07-19] MEDS: INSULIN SLIDING SCALE (NOVOLOG) 1 VIAL SQ SCH ×2 (06:37→20:03)
[2022-07-19] MEDS ORDERED: methaDONE HCL 10 MG TABLET PO ONE (09:51)
[2022-07-19] MEDS ORDERED: methaDONE 40 MG, methaDONE 10 MG PO ONE (10:30)
[2022-07-19] MEDS: PRENATAL VITAMINS W/ FOLIC ACID TABLET (FP) PO SCH (10:33)
[2022-07-19] MEDS: BUDESONIDE/FORMETEROL FUMARATE 80/4.5 mcg INHALER IH SCH ×2 (10:36→23:16)
[2022-07-19] MEDS: TIOTROPIUM BROMIDE 2.5 MCG (SPIRIVA) RESPIMAT INHALER IH SCH (10:37)
[2022-07-19] MEDS: NICOTINE 10 MG CARTRIDGE (INHALER) IH PRN (10:39)
[2022-07-19] MEDS: MELATONIN 5 MG TABLETS PO SCH (23:16)
[2022-07-19] MEDS: THIAMINE HCL 100 MG TABLET (FP) PO SCH (23:16)
[2022-07-20] MEDS ORDERED: methaDONE HCL 10 MG TABLET PO SCH (06:00)
[2022-07-20] MEDS: metFORMIN HCL 500 MG TABLET (FP) PO SCH ×2 (06:00→18:09)
[2022-07-20] MEDS: LORazepam 1 MG TABLET PO SCH ×4 (06:01→22:11)
[2022-07-20] MEDS: methaDONE 40 MG, methaDONE 10 MG PO SCH (06:05)
[2022-07-20] MEDS: INSULIN SLIDING SCALE (NOVOLOG) 1 VIAL SQ SCH ×2 (06:06→18:08)
[2022-07-20] MEDS: TIOTROPIUM BROMIDE 2.5 MCG (SPIRIVA) RESPIMAT INHALER IH SCH (11:12)
[2022-07-20] MEDS: BUDESONIDE/FORMETEROL FUMARATE 80/4.5 mcg INHALER IH SCH ×2 (11:12→22:11)
[2022-07-20] MEDS: PRENATAL VITAMINS W/ FOLIC ACID TABLET (FP) PO SCH (11:12)
[2022-07-20] MEDS: METHOCARBAMOL 500 MG TABLET PO PRN (18:08)
[2022-07-20] MEDS: THIAMINE HCL 100 MG TABLET (FP) PO SCH (22:14)
[2022-07-20] MEDS: MELATONIN 5 MG TABLETS PO SCH (22:14)
[2022-07-21] MEDS ORDERED: LORazepam 0.5 MG TABLET PO PRN
[2022-07-21] MEDS: methaDONE 40 MG, methaDONE 10 MG PO SCH (05:49)
[2022-07-21] MEDS: LORazepam 0.5 MG TABLET PO SCH ×3 (05:51→18:14)
[2022-07-21] MEDS: INSULIN SLIDING SCALE (NOVOLOG) 1 VIAL SQ SCH ×2 (06:53→17:20)
[2022-07-21] MEDS: metFORMIN HCL 500 MG TABLET (FP) PO SCH ×2 (06:53→19:04)
[2022-07-21] MEDS: PRENATAL VITAMINS W/ FOLIC ACID TABLET (FP) PO SCH (10:28)
[2022-07-21] MEDS: BUDESONIDE/FORMETEROL FUMARATE 80/4.5 mcg INHALER IH SCH ×2 (10:30→23:17)
[2022-07-21] MEDS: NICOTINE 10 MG CARTRIDGE (INHALER) IH PRN ×2 (10:31→19:05)
[2022-07-21] MEDS: TIOTROPIUM BROMIDE 2.5 MCG (SPIRIVA) RESPIMAT INHALER IH SCH (10:53)
[2022-07-21] MEDS: MELATONIN 5 MG TABLETS PO SCH (23:16)
[2022-07-21] MEDS: THIAMINE HCL 100 MG TABLET (FP) PO SCH (23:17)
[2022-07-22] MEDS: LORazepam 0.5 MG TABLET PO SCH (00:17)
[2022-07-22] MEDS ORDERED: LORazepam 0.5 MG TABLET PO ONE (05:00)
[2022-07-22] MEDS: methaDONE 40 MG, methaDONE 10 MG PO SCH (05:47)
[2022-07-22] MEDS: INSULIN SLIDING SCALE (NOVOLOG) 1 VIAL SQ SCH (07:49)
[2022-07-22] MEDS: metFORMIN HCL 500 MG TABLET (FP) PO SCH (07:50)
[2022-07-22] MEDS: PRENATAL VITAMINS W/ FOLIC ACID TABLET (FP) PO SCH (10:25)
[2022-07-22] MEDS: BUDESONIDE/FORMETEROL FUMARATE 80/4.5 mcg INHALER IH SCH (10:26)
[2022-07-22] MEDS: TIOTROPIUM BROMIDE 2.5 MCG (SPIRIVA) RESPIMAT INHALER IH SCH (10:26)
[2022-07-22] MEDS: NICOTINE 10 MG CARTRIDGE (INHALER) IH PRN (10:30)
[2022-07-22] MEDS: METHOCARBAMOL 500 MG TABLET PO PRN (10:30)
[2022-07-22 13:21] VITALS: BP 90/60; PULSE 109; RESP 20; TEMP 98
== END 2022-07-22 14:07 | disposition home or self-care (01) | DRG 897 ==
LOC: YASAS 10:44 → Y6N 13:11
PROVIDERS: ADMIT Allergy & Immunology; ATTEND Surgery
PROC: HZ2ZZZZ Detoxification Services for Substance Abuse Treatment (ICD-10-PCS; principal; 2022-07-18)
DX: F10.230 Alcohol dependence with withdrawal, uncomplicated (principal); F11.20 Opioid dependence, uncomplicated; F14.20 Cocaine dependence, uncomplicated; F17.210 Nicotine dependence, cigarettes, uncomplicated; F19.24 Other psychoactive substance dependence with psychoactive substance-induced mood disorder; F41.9 Anxiety disorder, unspecified; J44.9 Chronic obstructive pulmonary disease, unspecified; J45.20 Mild intermittent asthma, uncomplicated; E11.9 Type 2 diabetes mellitus without complications; Z79.84 Long term (current) use of oral hypoglycemic drugs; Z96.651 Presence of right artificial knee joint; Z88.6 Allergy status to analgesic agent; Z88.8 Allergy status to other drugs, medicaments and biological substances
CPT/HCPCS: 36415; 80053; 82140; 82962; 85027; 86780; C9803-CS; U0003; U0005

== ENCOUNTER 2023-02-06 09:44 | Inpatient (IN) | payer OTHER ==
[2023-02-06 10:40] VITALS: BMI 21.2
[2023-02-06] MEDS ORDERED: BENZONATATE 200 MG CAPSULE PO PRN (11:21)
[2023-02-06] MEDS ORDERED: LORazepam 1 MG TABLET PO PRN (11:21)
[2023-02-06] MEDS ORDERED: NALOXONE HCL 0.4 MG/ML VIAL IM PRN (11:21)
[2023-02-06] MEDS ORDERED: MAG HYDROX/AL HYDROX/SIMETH 30 ML UNIT-DOSE CUP PO PRN (11:21)
[2023-02-06] MEDS ORDERED: BENZOCAINE/MENTHOL (CHLORASEPTIC ) LOZENGE MM PRN (11:21)
[2023-02-06] MEDS ORDERED: guaiFENesin 600 MG TABLET.ER (FP) PO PRN (11:21)
[2023-02-06] MEDS ORDERED: LOPERAMIDE HCL 2 MG CAPSULE PO PRN (11:21)
[2023-02-06] MEDS ORDERED: BISMUTH SUBSALICYLATE 524 MG/30 ML PO PRN (11:21)
[2023-02-06] MEDS ORDERED: DICYCLOMINE HCL 10 MG CAPSULE PO PRN (11:21)
[2023-02-06] MEDS ORDERED: ACETAMINOPHEN 325 MG TABLET (FP) PO PRN (11:21)
[2023-02-06] MEDS ORDERED: METHOCARBAMOL 500 MG TABLET PO PRN (11:21)
[2023-02-06] MEDS ORDERED: POLYETHYLENE GLYCOL (HEALTHYLAX) 3350 17 GM PACKET PO PRN (11:21)
[2023-02-06] MEDS ORDERED: ONDANSETRON *ODT* 4 MG TABLET SL PRN (11:21)
[2023-02-06] MEDS ORDERED: NICOTINE POLACRILEX 2 MG GUM BUC PRN (11:21)
[2023-02-06] MEDS ORDERED: NALOXONE HCL (KLOXXADO) 8 MG SPRAY NS PRN (11:21)
[2023-02-06] MEDS ORDERED: MAGNESIUM HYDROX 2400MG/30ML ORAL SUSPENSION 30 ML CUP PO PRN (11:21)
[2023-02-06] MEDS ORDERED: NICOTINE 7 MG/24 HOURS TOPICAL PATCH TD PRN (11:21)
[2023-02-06] MEDS ORDERED: hydrOXYzine PAMOATE 25 MG CAPSULE (FP) PO PRN (11:21)
[2023-02-06] MEDS ORDERED: ALBUTEROL SO4 2.5/IPRATROPIUM 0.5 INH SOL 3 ML VIAL.NEB. NEB ONE (14:55)
[2023-02-06] MEDS ORDERED: predniSONE 20 MG TABLET (UD) PO ONE (14:56)
[2023-02-06] MEDS ORDERED: LORazepam 2 MG TABLET PO SCH (17:00)
[2023-02-06] MEDS: metFORMIN HCL 500 MG TABLET (FP) PO SCH (17:45)
[2023-02-06] MEDS: ALBUTEROL SO4 2.5/IPRATROPIUM 0.5 INH SOL 3 ML VIAL.NEB. NEB SCH ×2 (17:47→23:18)
[2023-02-06 17:48] LABS: HEMATOCRIT 38.8 % (32.4-45.2); HEMOGLOBIN 12.5 GM/dL (10.7-15.3); MCH 22.4 pg (25.7-33.7); MCHC 32.2 g/dl (32.0-36.0); MEAN CELL VOLUME 69.5 fl (80-96); PLATELET COUNT 184 10^3/uL (134-434); RBC 5.58 M/mm3 (3.60-5.2); RDW 25.2 % (11.6-15.6); WHITE BLOOD COUNT 10.6 K/mm3 (4.0-10.0)
[2023-02-06 17:59] LABS: ALBUMIN 3.4 g/dl (3.4-5.0)
[2023-02-06 18:00] LABS: CALCIUM 9.5 mg/dL (8.5-10.1)
[2023-02-06 18:01] LABS: BLOOD UREA NITROGEN 13.6 mg/dL (7-18)
[2023-02-06 18:02] LABS: CREATININE 0.9 mg/dL (0.55-1.3)
[2023-02-06 18:03] LABS: BILIRUBIN,TOTAL 0.5 mg/dL (0.2-1); TOT PROT 6.8 g/dl (6.4-8.2)
[2023-02-06] MEDS: FAMOTIDINE 20 MG TABLET PO SCH (23:13)
[2023-02-06] MEDS: THIAMINE HCL 100 MG TABLET (FP) PO SCH (23:19)
[2023-02-06] MEDS: LORazepam 1 MG TABLET PO SCH (23:19)
[2023-02-06] MEDS: MELATONIN 5 MG TABLETS PO SCH (23:19)
[2023-02-07] MEDS: ALBUTEROL SO4 2.5/IPRATROPIUM 0.5 INH SOL 3 ML VIAL.NEB. NEB SCH ×4 (04:45→21:14)
[2023-02-07] MEDS: LORazepam 1 MG TABLET PO SCH ×4 (06:05→23:00)
[2023-02-07] MEDS: metFORMIN HCL 500 MG TABLET (FP) PO SCH ×2 (06:06→17:31)
[2023-02-07] MEDS: PRENATAL VITAMINS W/ FOLIC ACID TABLET (FP) PO SCH (10:17)
[2023-02-07] MEDS: FAMOTIDINE 20 MG TABLET PO SCH ×2 (10:17→23:01)
[2023-02-07] MEDS: predniSONE 20 MG TABLET (UD) PO SCH (10:17)
[2023-02-07] MEDS ORDERED: methaDONE HCL 10 MG TABLET PO SCH (12:15)
[2023-02-07] MEDS: methaDONE 80 MG, methaDONE 10 MG PO SCH (13:02)
[2023-02-07] MEDS: NICOTINE 10 MG CARTRIDGE (INHALER) IH PRN ×2 (13:10→17:30)
[2023-02-07] MEDS: ALBUTEROL SO4 HFA INHALER IH PRN (14:42)
[2023-02-07] MEDS: THIAMINE HCL 100 MG TABLET (FP) PO SCH (23:01)
[2023-02-07] MEDS: MELATONIN 5 MG TABLETS PO SCH (23:02)
[2023-02-08] MEDS: ALBUTEROL SO4 2.5/IPRATROPIUM 0.5 INH SOL 3 ML VIAL.NEB. NEB SCH ×4 (05:00→21:39)
[2023-02-08] MEDS: LORazepam 1 MG TABLET PO SCH ×4 (05:57→22:35)
[2023-02-08] MEDS: methaDONE 80 MG, methaDONE 10 MG PO SCH (05:57)
[2023-02-08] MEDS: metFORMIN HCL 500 MG TABLET (FP) PO SCH ×2 (06:04→17:07)
[2023-02-08] MEDS: predniSONE 20 MG TABLET (UD) PO SCH (11:22)
[2023-02-08] MEDS: FAMOTIDINE 20 MG TABLET PO SCH ×2 (11:22→22:35)
[2023-02-08] MEDS: PRENATAL VITAMINS W/ FOLIC ACID TABLET (FP) PO SCH (11:22)
[2023-02-08] MEDS: NICOTINE 10 MG CARTRIDGE (INHALER) IH PRN ×2 (11:25→22:38)
[2023-02-08] MEDS ORDERED: AZITHROMYCIN 500 MG TABLET PO ONE ×2 (15:21→18:30)
[2023-02-08] MEDS: THIAMINE HCL 100 MG TABLET (FP) PO SCH (22:35)
[2023-02-08] MEDS: MELATONIN 5 MG TABLETS PO SCH (22:35)
[2023-02-08] MEDS: ALBUTEROL SO4 HFA INHALER IH PRN (23:41)
[2023-02-09] MEDS ORDERED: LORazepam 0.5 MG TABLET PO PRN
[2023-02-09] MEDS: ALBUTEROL SO4 2.5/IPRATROPIUM 0.5 INH SOL 3 ML VIAL.NEB. NEB SCH ×2 (04:50→10:13)
[2023-02-09] MEDS: LORazepam 0.5 MG TABLET PO SCH ×2 (05:55→10:14)
[2023-02-09] MEDS: methaDONE 80 MG, methaDONE 10 MG PO SCH (05:55)
[2023-02-09] MEDS: metFORMIN HCL 500 MG TABLET (FP) PO SCH (06:15)
[2023-02-09] MEDS ORDERED: AZITHROMYCIN 250 MG TABLET PO SCH (10:00)
[2023-02-09 10:01] VITALS: BP 124/85; PULSE 110; RESP 18; TEMP 98.8
[2023-02-09] MEDS: ALBUTEROL SO4 HFA INHALER IH PRN (10:12)
[2023-02-09] MEDS: predniSONE 20 MG TABLET (UD) PO SCH (10:13)
[2023-02-09] MEDS: FAMOTIDINE 20 MG TABLET PO SCH (10:13)
[2023-02-09] MEDS: PRENATAL VITAMINS W/ FOLIC ACID TABLET (FP) PO SCH (10:14)
[2023-02-10] MEDS ORDERED: LORazepam 0.5 MG TABLET PO ONE (05:00)
== END 2023-02-09 11:39 | disposition left against medical advice (07) | DRG 894 ==
LOC: YASAS 09:44 → Y3N 12:52
PROVIDERS: ADMIT Allergy & Immunology; ATTEND Surgery
PROC: HZ2ZZZZ Detoxification Services for Substance Abuse Treatment (ICD-10-PCS; principal; 2023-02-06)
DX: F10.230 Alcohol dependence with withdrawal, uncomplicated (principal); J18.9 Pneumonia, unspecified organism; N39.0 Urinary tract infection, site not specified; F17.210 Nicotine dependence, cigarettes, uncomplicated; J43.0 Unilateral pulmonary emphysema [MacLeod's syndrome]; J45.20 Mild intermittent asthma, uncomplicated; E11.65 Type 2 diabetes mellitus with hyperglycemia; Z79.84 Long term (current) use of oral hypoglycemic drugs; Z96.651 Presence of right artificial knee joint; W19.XXXA Unspecified fall, initial encounter; Y92.239 Unspecified place in hospital as the place of occurrence of the external cause
CPT/HCPCS: 36415; 71046-TC-FY; 80053; 82140; 82962; 85027; 86780; 94640; C9803-CS; U0003; U0005

== ENCOUNTER 2023-09-15 11:42 | Inpatient (IN) | payer OTHER ==
[2023-09-15 12:13] VITALS: BMI 17.6
[2023-09-15] MEDS ORDERED: MAG HYDROX/AL HYDROX/SIMETH 30 ML UNIT-DOSE CUP PO PRN (13:37)
[2023-09-15] MEDS ORDERED: guaiFENesin 600 MG TABLET.ER (FP) PO PRN (13:37)
[2023-09-15] MEDS ORDERED: BENZONATATE 200 MG CAPSULE PO PRN (13:37)
[2023-09-15] MEDS ORDERED: MAGNESIUM HYDROX 2400MG/30ML ORAL SUSPENSION 30 ML CUP PO PRN (13:37)
[2023-09-15] MEDS ORDERED: LORazepam 1 MG TABLET PO PRN ×2 (13:37→16:18)
[2023-09-15] MEDS ORDERED: POLYETHYLENE GLYCOL (HEALTHYLAX) 3350 17 GM PACKET PO PRN (13:37)
[2023-09-15] MEDS ORDERED: ACETAMINOPHEN 325 MG TABLET (FP) PO PRN (13:37)
[2023-09-15] MEDS ORDERED: NALOXONE HCL (KLOXXADO) 8 MG SPRAY NS PRN (13:37)
[2023-09-15] MEDS ORDERED: hydrOXYzine PAMOATE 25 MG CAPSULE (FP) PO PRN (13:37)
[2023-09-15] MEDS ORDERED: ONDANSETRON *ODT* 4 MG TABLET SL PRN (13:37)
[2023-09-15] MEDS ORDERED: IBUPROFEN 400 MG TABLET (FP) PO PRN (13:37)
[2023-09-15] MEDS ORDERED: BENZOCAINE/MENTHOL (CHLORASEPTIC ) LOZENGE MM PRN (13:37)
[2023-09-15] MEDS ORDERED: DICYCLOMINE HCL 10 MG CAPSULE PO PRN (13:37)
[2023-09-15] MEDS ORDERED: BISMUTH SUBSALICYLATE 524 MG/30 ML PO PRN (13:37)
[2023-09-15] MEDS ORDERED: NALOXONE HCL 0.4 MG/ML VIAL IM PRN (13:37)
[2023-09-15] MEDS ORDERED: IBUPROFEN 600 MG TABLET (FP) PO PRN (13:37)
[2023-09-15] MEDS ORDERED: LOPERAMIDE HCL 2 MG CAPSULE PO PRN (13:37)
[2023-09-15] MEDS ORDERED: ALBUTEROL SO4 HFA INHALER IH PRN (13:40)
[2023-09-15] MEDS ORDERED: TIOTROPIUM BROMIDE 2.5 MCG (SPIRIVA) RESPIMAT INHALER IH PRN ×2 (13:45→16:26)
[2023-09-15] MEDS ORDERED: LORazepam 2 MG TABLET PO SCH (17:00)
[2023-09-15] MEDS: metFORMIN HCL 500 MG TABLET (FP) PO SCH (17:43)
[2023-09-15] MEDS: LORazepam 1 MG TABLET PO SCH ×2 (17:44→22:24)
[2023-09-15] MEDS: PRENATAL VITAMINS W/ FOLIC ACID TABLET (FP) PO SCH (17:47)
[2023-09-15] MEDS ORDERED: PATIENT'S OWN MEDICATION (NON-FORMULARY) (Mometasone/Formoterol [Dulera 200 Mcg-5 Mcg Inha IH SCH (22:00)
[2023-09-15] MEDS ORDERED: BUDESONIDE/FORMETEROL FUMARATE 80/4.5 mcg INHALER IH SCH (22:00)
[2023-09-15] MEDS: MELATONIN 5 MG TABLETS PO SCH (22:23)
[2023-09-15] MEDS: THIAMINE HCL 100 MG TABLET (FP) PO SCH (22:24)
[2023-09-16] MEDS: LORazepam 1 MG TABLET PO SCH ×4 (05:56→22:28)
[2023-09-16] MEDS: metFORMIN HCL 500 MG TABLET (FP) PO SCH ×2 (06:21→17:53)
[2023-09-16] MEDS ORDERED: methaDONE HCL 40 MG DISPERSABLE TABLET PO SCH (07:46)
[2023-09-16] MEDS ORDERED: NICOTINE POLACRILEX 2 MG GUM BUC PRN (09:22)
[2023-09-16] MEDS: BUDESONIDE/FORMETEROL FUMARATE 160/4.5 mcg INHALER IH SCH ×2 (09:41→22:28)
[2023-09-16] MEDS: NICOTINE 14 MG/24 HOURS TOPICAL PATCH TD SCH ×2 (09:41→09:45)
[2023-09-16] MEDS: PRENATAL VITAMINS W/ FOLIC ACID TABLET (FP) PO SCH (09:42)
[2023-09-16 10:48] LABS: POTASSIUM 4.7 mmol/L (3.5-5.1)
[2023-09-16 10:49] LABS: HEMATOCRIT 40.1 % (32.4-45.2); HEMOGLOBIN 12.9 GM/dL (10.7-15.3); MCH 24.4 pg (25.7-33.7); MCHC 32.3 g/dl (32.0-36.0); MEAN CELL VOLUME 75.5 fl (80-96); MEAN PLT VOLUME 8.8 fl (7.5-11.1); PLATELET COUNT 258 10^3/uL (134-434); RBC 5.31 M/mm3 (3.60-5.2); RDW 21.2 % (11.6-15.6); WHITE BLOOD COUNT 9.5 K/mm3 (4.0-10.0)
[2023-09-16 10:54] LABS: CALCIUM 9.1 mg/dL (8.5-10.1)
[2023-09-16 10:55] LABS: ALBUMIN 2.8 g/dl (3.4-5.0); BLOOD UREA NITROGEN 12.8 mg/dL (7-18)
[2023-09-16 10:58] LABS: CREATININE 0.6 mg/dL (0.55-1.3)
[2023-09-16 10:59] LABS: BILIRUBIN,TOTAL 0.6 mg/dL (0.2-1); TOT PROT 6.4 g/dl (6.4-8.2)
[2023-09-16] MEDS ORDERED: LACTULOSE 20 GM/30 ML UDC (FOR ORAL USE ONLY) PO PRN (16:45)
[2023-09-16] MEDS: MELATONIN 5 MG TABLETS PO SCH (22:27)
[2023-09-16] MEDS: THIAMINE HCL 100 MG TABLET (FP) PO SCH (22:27)
[2023-09-17] MEDS ORDERED: LORazepam 1 MG TABLET PO SCH (05:00)
[2023-09-17] MEDS: LORazepam 1 MG TABLET PO SCH ×4 (05:52→22:19)
[2023-09-17] MEDS: metFORMIN HCL 500 MG TABLET (FP) PO SCH ×2 (07:49→17:40)
[2023-09-17] MEDS: NICOTINE 14 MG/24 HOURS TOPICAL PATCH TD SCH (10:08)
[2023-09-17] MEDS: BACLOFEN 10 MG TABLET (FP) PO SCH ×2 (10:08→22:19)
[2023-09-17] MEDS: BUDESONIDE/FORMETEROL FUMARATE 160/4.5 mcg INHALER IH SCH ×2 (10:09→22:17)
[2023-09-17] MEDS: PRENATAL VITAMINS W/ FOLIC ACID TABLET (FP) PO SCH (10:09)
[2023-09-17] MEDS: CELECOXIB 100 MG CAPSULE PO SCH ×2 (10:47→22:21)
[2023-09-17] MEDS ORDERED: ACETAMINOPHEN 325 MG TABLET (FP) PO PRN (19:51)
[2023-09-17] MEDS: MELATONIN 5 MG TABLETS PO SCH (22:17)
[2023-09-17] MEDS: THIAMINE HCL 100 MG TABLET (FP) PO SCH (22:19)
[2023-09-18] MEDS ORDERED: LORazepam 0.5 MG TABLET PO PRN ×2
[2023-09-18] MEDS ORDERED: LORazepam 0.5 MG TABLET PO SCH (05:00)
[2023-09-18] MEDS: LORazepam 0.5 MG TABLET PO SCH ×4 (05:56→22:32)
[2023-09-18] MEDS: metFORMIN HCL 500 MG TABLET (FP) PO SCH ×2 (07:43→17:33)
[2023-09-18] MEDS: PRENATAL VITAMINS W/ FOLIC ACID TABLET (FP) PO SCH (10:10)
[2023-09-18] MEDS: BUDESONIDE/FORMETEROL FUMARATE 160/4.5 mcg INHALER IH SCH ×2 (10:11→22:31)
[2023-09-18] MEDS: BACLOFEN 10 MG TABLET (FP) PO SCH ×2 (10:11→22:31)
[2023-09-18] MEDS: CELECOXIB 100 MG CAPSULE PO SCH ×2 (10:11→22:30)
[2023-09-18] MEDS: NICOTINE 14 MG/24 HOURS TOPICAL PATCH TD SCH (10:15)
[2023-09-18 17:23] VITALS: RESP 16
[2023-09-18 20:38] VITALS: BP 106/65; PULSE 97; TEMP 97.5
[2023-09-18] MEDS ORDERED: ALBUTEROL SO4 2.5/IPRATROPIUM 0.5 INH SOL 3 ML VIAL.NEB. NEB ONE (21:00)
[2023-09-18] MEDS: MELATONIN 5 MG TABLETS PO SCH (22:31)
[2023-09-18] MEDS: THIAMINE HCL 100 MG TABLET (FP) PO SCH (22:31)
[2023-09-19] MEDS ORDERED: LORazepam 0.5 MG TABLET PO ONE ×2 (05:00)
[2023-09-19] MEDS: metFORMIN HCL 500 MG TABLET (FP) PO SCH (06:25)
== END 2023-09-18 09:00 | disposition short-term general hospital (02) | DRG 897 ==
LOC: YASAS 11:42 → Y3N 15:05
PROVIDERS: ADMIT Allergy & Immunology; ATTEND Surgery
PROC: HZ2ZZZZ Detoxification Services for Substance Abuse Treatment (ICD-10-PCS; principal; 2023-09-15)
DX: F10.230 Alcohol dependence with withdrawal, uncomplicated (principal); F11.20 Opioid dependence, uncomplicated; F14.20 Cocaine dependence, uncomplicated; J44.1 Chronic obstructive pulmonary disease with (acute) exacerbation; F12.10 Cannabis abuse, uncomplicated; F17.210 Nicotine dependence, cigarettes, uncomplicated; K21.9 Gastro-esophageal reflux disease without esophagitis; E11.65 Type 2 diabetes mellitus with hyperglycemia; Z79.84 Long term (current) use of oral hypoglycemic drugs; Z86.718 Personal history of other venous thrombosis and embolism; S62.102D Fracture of unspecified carpal bone, left wrist, subsequent encounter for fracture with routine healing; W19.XXXD Unspecified fall, subsequent encounter; Z99.89 Dependence on other enabling machines and devices
CPT/HCPCS: 36415; 80053; 80307; 82140; 82962; 85027; 86780; 87635; J0475

== ENCOUNTER 2023-09-18 21:14 | Inpatient (IN) | payer OTHER ==
[2023-09-18] MEDS ORDERED: ALBUTEROL SO4 2.5/IPRATROPIUM 0.5 INH SOL 3 ML VIAL.NEB. NEB ONE ×2 (21:49→21:58)
[2023-09-18] MEDS ORDERED: methylPREDNISolone NA SUCC 125 MG/2 ML VIAL IVPUSH ONE (21:49)
[2023-09-18] MEDS ORDERED: methylPREDNISolone NA SUCC 125 MG/2 ML VIAL ONE (21:59)
[2023-09-18 22:22] LABS: VENOUS BASE EXCESS 5.4 mmol/L (-2-2); VENOUS O2 SATURATION 63.8 % (70-80); VENOUS PCO2 60.8 mmHg (38-52); VENOUS PH 7.349 (7.310-7.410)
[2023-09-18 22:25] LABS: BASO % 0.4 % (0-2.0); EOS % 3.7 % (0-4.5); HEMATOCRIT 37.1 % (32.4-45.2); HEMOGLOBIN 11.8 GM/dL (10.7-15.3); LYMPH % 22.3 % (8-40); MCH 23.9 pg (25.7-33.7); MCHC 31.9 g/dl (32.0-36.0); MEAN PLT VOLUME 8.1 fl (7.5-11.1); MONO % 8.6 % (3.8-10.2); PLATELET COUNT 218 10^3/uL (134-434); RBC 4.95 M/mm3 (3.60-5.2); RDW 20.6 % (11.6-15.6); WHITE BLOOD COUNT 7.4 K/mm3 (4.0-10.0)
[2023-09-18 22:32] LABS: INR 1.05 (0.83-1.09); PROTHROMBIN TIME (PATIENT) 12.2 SEC (9.7-13.0)
[2023-09-18 22:35] LABS: ACTIVATED PTT 28.5 SECONDS (25.2-36.5)
[2023-09-18 22:43] LABS: POTASSIUM 4.7 mmol/L (3.5-5.1)
[2023-09-18 22:45] LABS: BLOOD UREA NITROGEN 16.1 mg/dL (7-18); CALCIUM 8.1 mg/dL (8.5-10.1)
[2023-09-18 22:46] LABS: ALBUMIN 2.5 g/dl (3.4-5.0)
[2023-09-18] MEDS ORDERED: CEFTRIAXONE 1,000 MG in DEXTROSE 5%-WATER - 50 ML IVPB ONE (22:47)
[2023-09-18 22:49] LABS: CREATININE 0.6 mg/dL (0.55-1.3)
[2023-09-18 22:50] LABS: BILIRUBIN,TOTAL 0.2 mg/dL (0.2-1); TOT PROT 5.6 g/dl (6.4-8.2)
[2023-09-18] MEDS ORDERED: CEFTRIAXONE 1 GM/50 ML BAG ONE (22:56)
[2023-09-18] MEDS ORDERED: AZITHROMYCIN IVPB 500 MG in DEXTROSE 5%-WATER - 250 ML IVPB ONE (23:02)
[2023-09-18] MEDS ORDERED: AZITHROMYCIN IVPB 500 MG/250 ML BAG IVPB ONE (23:09)
[2023-09-18 23:37] LABS: ANISOCYTOSIS 2+; MACROCYTOSIS 1+; OVALOCYTE 1+
[2023-09-19] MEDS: ALBUTEROL SO4 0.083% IH SOL 2.5 MG/3 ML VIAL.NEB. NEB SCH ×4 (00:26→01:22)
[2023-09-19 06:00] VITALS: BP 115/75; PULSE 89; RESP 18; TEMP 97.7
[2023-09-19] MEDS ORDERED: LORazepam 1 MG TABLET PO PRN (06:08)
[2023-09-19 06:14] VITALS: BMI 18.1
[2023-09-19] MEDS ORDERED: INSULIN (NOVOLOG) ASPART 100 UNITS/ML 10ML VIAL ONE (06:51)
[2023-09-19] MEDS ORDERED: INSULIN SLIDING SCALE (NOVOLOG) 1 VIAL SQ SCH (07:00)
[2023-09-19] MEDS ORDERED: FOLIC ACID 5 MG/1 ML SQ ONE (08:00)
[2023-09-19 09:52] LABS: HEMATOCRIT 38.4 % (32.4-45.2); HEMOGLOBIN 12.4 GM/dL (10.7-15.3); MCH 24.3 pg (25.7-33.7); MCHC 32.3 g/dl (32.0-36.0); MEAN CELL VOLUME 75.2 fl (80-96); MEAN PLT VOLUME 8.6 fl (7.5-11.1); PLATELET COUNT 228 10^3/uL (134-434); RDW 20.4 % (11.6-15.6); WHITE BLOOD COUNT 6.1 K/mm3 (4.0-10.0)
[2023-09-19] MEDS ORDERED: FOLIC ACID 1 MG TABLET (FP) PO SCH (10:00)
[2023-09-19] MEDS ORDERED: ENOXAPARIN NA (PORCINE) 40 MG/0.4 ML DISP.SYRIN SQ SCH (10:00)
[2023-09-19] MEDS ORDERED: methylPREDNISolone NA SUCC 40 MG/1 ML VIAL IVPUSH SCH (10:00)
[2023-09-19] MEDS ORDERED: NICOTINE 14 MG/24 HOURS TOPICAL PATCH TD SCH (10:00)
[2023-09-19] MEDS ORDERED: BUDESONIDE/FORMETEROL FUMARATE 80/4.5 mcg INHALER IH SCH (10:00)
[2023-09-19] MEDS ORDERED: ALBUTEROL SO4 2.5/IPRATROPIUM 0.5 INH SOL 3 ML VIAL.NEB. NEB SCH (10:00)
[2023-09-19] MEDS ORDERED: THIAMINE HCL 200 MG/2 ML VIAL IVPB SCH (10:00)
[2023-09-19 10:10] LABS: POTASSIUM 5.5 mmol/L (3.5-5.1)
[2023-09-19 10:20] LABS: ALBUMIN 2.7 g/dl (3.4-5.0); TOT PROT 6.5 g/dl (6.4-8.2)
[2023-09-19 10:21] LABS: BILIRUBIN,TOTAL 0.2 mg/dL (0.2-1)
[2023-09-19 10:22] LABS: CREATININE 0.6 mg/dL (0.55-1.3)
[2023-09-19 10:23] LABS: PHOSPHOROUS 4.3 mg/dL (2.5-4.9)
[2023-09-19 10:24] LABS: BLOOD UREA NITROGEN 14.7 mg/dL (7-18)
[2023-09-19 10:25] LABS: CALCIUM 8.5 mg/dL (8.5-10.1); MAGNESIUM 2.2 mg/dL (1.8-2.4)
[2023-09-19] MEDS ORDERED: LORazepam 1 MG TABLET PO SCH (11:00)
[2023-09-19] MEDS ORDERED: AZITHROMYCIN IVPB 500 MG/250 ML BAG IVPB SCH (12:00)
[2023-09-21] MEDS ORDERED: LORazepam 1 MG TABLET PO SCH (05:00)
[2023-09-22] MEDS ORDERED: LORazepam 0.5 MG TABLET PO PRN
[2023-09-22] MEDS ORDERED: LORazepam 0.5 MG TABLET PO SCH (05:00)
[2023-09-23] MEDS ORDERED: LORazepam 0.5 MG TABLET PO ONE (05:00)
== END 2023-09-19 11:13 | disposition left against medical advice (07) | DRG 191 ==
LOC: JER 21:14 → JERBED 22:47 → J7W 09-19 05:48
PROVIDERS: ADMIT Internal Medicine; ATTEND Nurse Practitioner Acute Care
DX: J44.1 Chronic obstructive pulmonary disease with (acute) exacerbation (principal); J45.901 Unspecified asthma with (acute) exacerbation; Z99.81 Dependence on supplemental oxygen; K21.9 Gastro-esophageal reflux disease without esophagitis; E11.9 Type 2 diabetes mellitus without complications; F17.210 Nicotine dependence, cigarettes, uncomplicated
CPT/HCPCS: 36415; 71045-TC-FY; 80053; 82607; 82746; 82803; 82962; 83735; 84100; 84484; 85025; 85027; 85610; 85730; 93005; 93010; 94640; 99285-25